=== PATIENT | female | born 1990 | race Caucasian/White ===

== ENCOUNTER → 2016-07-28 | Emergency (ER) | payer OTHER ==
--- NOTE | 2016-07-29 04:33 | ED MED RECONCILIATION SUMMARY ---
Patient: GENIA CABALLERO Medication Reconciliation Report [facility] VisitID: [id number] [address] [place] [address] 26y, F Registration Date/Time: 07/28/2016 Weight: (not available) Height/Length: (not available) BMI: (not available) ALLERGIES: The patient's Home Medications are listed below: Not obtained. The source(s) of the original Home Medication information: Not obtained. The following Medications were given to the patient in the Emergency Department: None. The following Medications were prescribed to the patient: None.
--- NOTE | 2016-07-29 04:33 | ED MAR SUMMARY ---
..... Medication Administration Record [facility] [address], [place] [id number] Patient: GENIA CABALLERO Visit ID: [id number] 26y, F Weight: (not available) Height/Length: (not available) BMI: (not available) ALLERGIES:
--- NOTE | 2016-07-29 04:33 | ED MED RECONCILIATION SUMMARY ---
Patient: GENIA CABALLERO Medication Reconciliation Report [facility] VisitID: [id number] [address] [place] [address] 26y, F Registration Date/Time: 07/28/2016 Weight: (not available) Height/Length: (not available) BMI: (not available) ALLERGIES: The patient's Home Medications are listed below: Not obtained. The source(s) of the original Home Medication information: Not obtained. The following Medications were given to the patient in the Emergency Department: None. The following Medications were prescribed to the patient: None.
--- NOTE | 2016-07-29 04:33 | ED MAR SUMMARY ---
..... Medication Administration Record [facility] [address] [place], [place] [id number] Patient: GENIA CABALLERO Visit ID: [id number] 26y, F Weight: (not available) Height/Length: (not available) BMI: (not available) ALLERGIES:
--- NOTE | 2016-07-29 04:33 | ED NURSING NOTES ---
Clinical Report - Nurses [place] [address] [place] [address] 07/28/2016 23:30 Patient: GENIA CABALLERO DISPOSITION / DISCHARGE The patient left the Emergency Department before triage. She stated is leaving the ED (Patient informed registration that they were leaving). --00:42 Genia Reece ER Tech1 Departure time: 00:42. --00:42 Genia Reece, ER Tech1. Locked/Released at 07/29/2016 4:33 by Arias Jefferson R.N.
--- NOTE | 2016-07-29 04:33 | ED NURSING NOTES ---
Clinical Report - Nurses [place] [address] [place] [address] 07/28/2016 23:30 Patient: GENIA CABALLERO DISPOSITION / DISCHARGE The patient left the Emergency Department before triage. She stated is leaving the ED (Patient informed registration that they were leaving). --00:42 Genia Reece ER Tech1 Departure time: 00:42. --00:42 Genia Reece, ER Tech1. Locked/Released at 07/29/2016 4:33 by Arias Jefferson R.N.
== END ==
LOC: ED SRH 23:27
DX: Z53.21 Procedure and treatment not carried out due to patient leaving prior to being seen by health care provider (principal)